=== PATIENT | female | born 1950 | race Caucasian/White ===

== ENCOUNTER 2016-12-31 08:40 | Outpatient (CLI) | payer MEDICARE, OTHER ==
[2016-12-31 18:20] LABS: BASOPHILS # (AUTO) 0.1 10^3/uL (0.0-0.1); BASOPHILS % (AUTO) 1.1 %; EOSINOPHILS # (AUTO) 0.2 10^3/uL (0.0-0.7); EOSINOPHILS % (AUTO) 4.2 %; HCT - HEMATOCRIT 42.3 % (37.0-47.0); HGB - HEMOGLOBIN 13.9 g/dL (12.0-16.0); LYMPHOCYTES # (AUTO) 1.8 10^3/uL (1.5-3.5); LYMPHOCYTES % (AUTO) 31.2 %; MEAN CORPUSCULAR HEMOGLOBIN 29.6 pg (27.0-31.0); MEAN CORPUSCULAR HGB CONC 32.8 g/dL (32.0-36.0); MEAN CORPUSCULAR VOLUME 90.2 fL (81.0-99.0); MEAN PLATELET VOLUME 8.6 fL (7.9-10.8); MONOCYTES # (AUTO) 0.3 10^3/uL (0.0-1.0); MONOCYTES % (AUTO) 5.3 %; NEUTROPHILS # (AUTO) 3.4 10^3/uL (1.5-6.6); NEUTROPHILS % (AUTO) 58.2 %; NUCLEATED RED BLOOD CELLS AUTO 0.2 /100WBC; RED BLOOD COUNT 4.69 10^6/uL (4.20-5.40); RED CELL DISTRIBUTION WIDTH 13.5 % (12.0-15.0); UNCORRECTED WHITE BLOOD COUNT 5.9 x10^3/uL; WHITE BLOOD COUNT 5.9 x10^3/uL (4.8-10.8)
[2016-12-31 18:32] LABS: ALBUMIN/GLOBULIN RATIO 1.3 (1.0-2.2); BILIRUBIN,TOTAL 0.4 mg/dL (0.2-1.0); BUN - BLOOD UREA NITROGEN 13 mg/dL (6-20); CARBON DIOXIDE - CO2 27 mmol/L (21-32); CHLORIDE 105 mmol/L (101-111); CREATININE 0.6 mg/dL (0.4-1.0); GFR - MDRD 100 (>89); GLUCOSE 81 mg/dL (70-100); POTASSIUM 3.8 mmol/L (3.5-5.0); SODIUM 139 mmol/L (135-145); TOTAL PROTEIN 6.8 g/dL (6.7-8.2)
== END 2016-12-31 08:41 | disposition home or self-care (01) ==
LOC: LAB.F 08:40
PROVIDERS: ATTEND Physician Assistant Medical
DX: E55.9 Vitamin D deficiency, unspecified (principal); E03.9 Hypothyroidism, unspecified; Z51.81 Encounter for therapeutic drug level monitoring; Z79.899 Other long term (current) drug therapy
CPT/HCPCS: 36415; 80053; 82306; 84443; 85025

== ENCOUNTER 2017-08-16 11:17 | Outpatient (CLI) | payer MEDICARE, OTHER ==
--- NOTE | 2017-08-17 15:13 | Mammography Report ---
DIGITAL SCREENING MAMMOGRAM: 08/16/2017 CLINICAL INDICATION: A 67-year-old with history of bilateral implants for screening. COMPARISON: 06/2015, 05/2014, 05/2013, 05/2012, 05/2011, 05/2010, 05/2009. TECHNIQUE: Routine CC and MLO projections, with implant displaced views, were obtained of the breasts. FINDINGS: The breasts again demonstrate heterogeneously dense fibroglandular parenchyma bilaterally. Bilateral subglandular implants are stable, as it is extravasated silicone. No suspicious masses, clustered microcalcifications, or regions of architectural distortion are identified. Punctate, typically benign calcifications are present. IMPRESSION: BENIGN FINDINGS. RECOMMENDATION: Routine annual screening unless otherwise clinically indicated. BIRADS CATEGORY 2 - BENIGN FINDINGS. STANDARD QUALIFYING STATEMENTS: 1. This examination was reviewed with the aid of Computer-Aided Detection (CAD) . 2. A negative or benign imaging report should not delay biopsy if clinically suspicious findings are present. Consider surgical consultation if warranted. More than 5 % of cancers are not identified by imaging. 3. Dense breasts may obscure an underlying neoplasm. TD: 08/17/2017 15:04 SHYAM
== END 2017-08-16 11:18 | disposition home or self-care (01) ==
LOC: DI 11:17
PROVIDERS: ATTEND Physician Assistant Medical
DX: Z12.31 Encounter for screening mammogram for malignant neoplasm of breast (principal); Z98.82 Breast implant status
CPT/HCPCS: 77067

== ENCOUNTER 2017-08-16 11:19 | Outpatient (CLI) | payer MEDICARE, OTHER ==
--- NOTE | 2017-08-16 14:37 | XRAY Report ---
THREE VIEW LEFT ANKLE: 08/16/2017 CLINICAL INDICATION: Pain. FINDINGS: AP, lateral, oblique views of the left ankle demonstrate severe osteoarthritis of the mortise. There is no evidence of acute fracture. No effusion is present. IMPRESSION: SEVERE OSTEOARTHRITIS OF THE LEFT ANKLE. TD: 08/16/2017 14:22
== END 2017-08-16 11:20 | disposition home or self-care (01) ==
LOC: DI 11:19
PROVIDERS: ATTEND Internal Medicine
DX: M25.572 Pain in left ankle and joints of left foot (principal); M19.072 Primary osteoarthritis, left ankle and foot

== ENCOUNTER 2018-03-17 08:14 | Outpatient (CLI) | payer MEDICARE, OTHER ==
[2018-03-17 10:21] LABS: BASOPHILS % (AUTO) 0.4 %; EOSINOPHILS # (AUTO) 0.3 10^3/uL (0.0-0.7); EOSINOPHILS % (AUTO) 3.9 %; HGB - HEMOGLOBIN 13.8 g/dL (12.0-16.0); LYMPHOCYTES # (AUTO) 1.9 10^3/uL (1.5-3.5); LYMPHOCYTES % (AUTO) 28.4 %; MEAN CORPUSCULAR HEMOGLOBIN 29.9 pg (27.0-31.0); MEAN CORPUSCULAR HGB CONC 33.6 g/dL (32.0-36.0); MEAN CORPUSCULAR VOLUME 88.8 fL (81.0-99.0); MEAN PLATELET VOLUME 7.7 fL (7.9-10.8); MONOCYTES # (AUTO) 0.4 10^3/uL (0.0-1.0); MONOCYTES % (AUTO) 5.7 %; NEUTROPHILS # (AUTO) 4.1 10^3/uL (1.5-6.6); NEUTROPHILS % (AUTO) 61.6 %; PLT - PLATELET COUNT 337 10^3/uL (130-450); RED BLOOD COUNT 4.63 10^6/uL (4.20-5.40); RED CELL DISTRIBUTION WIDTH 13.3 % (12.0-15.0); WHITE BLOOD COUNT 6.7 x10^3/uL (4.8-10.8)
[2018-03-17 10:26] LABS: ALBUMIN 3.8 g/dL (3.2-5.5); ALBUMIN/GLOBULIN RATIO 1.3 (1.0-2.2); BILIRUBIN,TOTAL 0.7 mg/dL (0.2-1.0); CREATININE 0.6 mg/dL (0.4-1.0); TOTAL PROTEIN 6.7 g/dL (6.7-8.2)
== END 2018-03-17 08:15 | disposition home or self-care (01) ==
LOC: LAB.F 08:14
PROVIDERS: ATTEND Physician Assistant Medical
DX: Z51.81 Encounter for therapeutic drug level monitoring (principal); E03.9 Hypothyroidism, unspecified; D64.9 Anemia, unspecified
CPT/HCPCS: 36415; 80053; 84443; 85025

== ENCOUNTER 2018-11-21 07:36 | Outpatient (CLI) | payer MEDICARE, OTHER ==
[2018-11-21 10:17] LABS: ALBUMIN 3.8 g/dL (3.2-5.5); ALBUMIN/GLOBULIN RATIO 1.3 (1.0-2.2); BILIRUBIN,TOTAL 0.6 mg/dL (0.2-1.0); CALCIUM 8.9 mg/dL (8.5-10.3); CREATININE 0.7 mg/dL (0.4-1.0); TOTAL PROTEIN 6.7 g/dL (6.7-8.2)
[2018-11-21 10:23] LABS: BASOPHILS % (AUTO) 0.7 %; EOSINOPHILS # (AUTO) 0.3 10^3/uL (0.0-0.7); EOSINOPHILS % (AUTO) 4.1 %; HGB - HEMOGLOBIN 12.9 g/dL (12.0-16.0); LYMPHOCYTES % (AUTO) 32.2 %; MEAN CORPUSCULAR HEMOGLOBIN 29.3 pg (27.0-31.0); MEAN CORPUSCULAR HGB CONC 31.9 g/dL (32.0-36.0); MEAN PLATELET VOLUME 10.1 fL (7.9-10.8); MONOCYTES # (AUTO) 0.4 10^3/uL (0.0-1.0); MONOCYTES % (AUTO) 6.4 %; NEUTROPHILS # (AUTO) 3.4 10^3/uL (1.5-6.6); NEUTROPHILS % (AUTO) 56.4 %; PLT - PLATELET COUNT 312 10^3/uL (130-450); RED CELL DISTRIBUTION WIDTH 12.9 % (12.0-15.0); WHITE BLOOD COUNT 6.1 x10^3/uL (4.8-10.8)
== END 2018-11-21 07:37 | disposition home or self-care (01) ==
LOC: LAB.S 07:36
PROVIDERS: ATTEND Physician Assistant Medical
DX: E03.9 Hypothyroidism, unspecified (principal); Z51.81 Encounter for therapeutic drug level monitoring; Z79.899 Other long term (current) drug therapy
CPT/HCPCS: 36415; 80053; 84443; 85025

== ENCOUNTER 2019-12-07 10:03 | Outpatient (CLI) | payer MEDICARE, OTHER ==
--- NOTE | 2019-12-10 11:48 | Mammography Report ---
BILATERAL DIGITAL SCREENING MAMMOGRAM 3D/2D WITH AUGMENTATION: 12/07/2019 CLINICAL: Routine screening. Comparison is made to exams dated: 08/16/2017 mammogram, 07/11/2015 mammogram, 06/13/2014 mammogram, mammogram, 06/11/2011 mammogram, and 06/02/2012 mammogram - [facility]. The tissue of both breasts is heterogeneously dense. This may lower the sensitivity of mammography. Bilateral silicone implants are present. There is an irregular high density asymmetry in the left breast anterior depth lateral region seen on the craniocaudal view only. This is more prominent. No other significant masses, calcifications, or other findings are seen in either breast. IMPRESSION: INCOMPLETE: NEEDS ADDITIONAL IMAGING EVALUATION The irregular high density asymmetry in the left breast is indeterminate. Additional views with poss ible ultrasound are recommended. This exam was interpreted at Station ID: [id number]. NOTE: For mammograms, a report in lay terms will be sent to the patient. Approximately 15% of breast malignancies will not be visualized mammographically. In the management of a palpable breast mass, a negative mammogram must not discourage biopsy of a clinically suspicious lesion. Electronically Signed By: Delmi arias/:12/07/2019 12:31:01 ACR BI-RADS Category 0: Incomplete 3340F PARENCHYMAL PATTERN: (D) - The breast(s) demonstrate(s) heterogeneously dense fibroglandular omid pan. BI-RADS CATEGORY: (0) - 0 Mammo and US [id number] Immediate follow-up LATERALITY: (B)
== END 2019-12-07 10:04 | disposition home or self-care (01) ==
LOC: DI 10:03
DX: Z12.31 Encounter for screening mammogram for malignant neoplasm of breast (principal); R92.8 Other abnormal and inconclusive findings on diagnostic imaging of breast; Z98.82 Breast implant status
CPT/HCPCS: 77063; 77067

== ENCOUNTER 2020-01-08 07:16 | Outpatient (CLI) | payer MEDICARE, OTHER ==
[2020-01-08 15:27] LABS: BASOPHILS % (AUTO) 0.5 %; EOSINOPHILS # (AUTO) 0.2 10^3/uL (0.0-0.7); EOSINOPHILS % (AUTO) 3.1 %; HGB - HEMOGLOBIN 12.2 g/dL (12.0-16.0); LYMPHOCYTES % (AUTO) 33.6 %; MEAN CORPUSCULAR HEMOGLOBIN 27.1 pg (27.0-31.0); MEAN CORPUSCULAR HGB CONC 30.6 g/dL (32.0-36.0); MEAN CORPUSCULAR VOLUME 88.5 fL (81.0-99.0); MEAN PLATELET VOLUME 9.5 fL (7.9-10.8); MONOCYTES # (AUTO) 0.4 10^3/uL (0.0-1.0); MONOCYTES % (AUTO) 7.1 %; NEUTROPHILS # (AUTO) 3.2 10^3/uL (1.5-6.6); NEUTROPHILS % (AUTO) 55.4 %; PLT - PLATELET COUNT 352 10^3/uL (130-450); RED BLOOD COUNT 4.51 10^6/uL (4.20-5.40); RED CELL DISTRIBUTION WIDTH 13.9 % (12.0-15.0); WHITE BLOOD COUNT 5.8 x10^3/uL (4.8-10.8)
[2020-01-08 15:48] LABS: ALBUMIN 4.1 g/dL (3.2-5.5); ALBUMIN/GLOBULIN RATIO 1.4 (1.0-2.2); ALKALINE PHOSPHATASE 113 IU/L (42-121); ALT ALANINE AMINOTRANSFERASE 19 IU/L (10-60); AST ASPARTATE AMINOTRANSFERASE 26 IU/L (10-42); BILIRUBIN,TOTAL 0.5 mg/dL (0.2-1.0); BUN - BLOOD UREA NITROGEN 12 mg/dL (6-20); CALCIUM 9.1 mg/dL (8.5-10.3); CARBON DIOXIDE - CO2 26 mmol/L (21-32); CHLORIDE 108 mmol/L (101-111); CHOL/HDL RATIO 2.7 (<4.4); CHOLESTEROL 215 mg/dL; CREATININE 0.6 mg/dL (0.4-1.0); GLUCOSE 90 mg/dL (70-100); HDL CHOLESTEROL 80 mg/dL; LDL CHOLESTEROL,CALCULATED 123 mg/dL; LDL/HDL RATIO 1.5 (<4.4); SODIUM 141 mmol/L (135-145); TOTAL PROTEIN 7.1 g/dL (6.7-8.2); VLDL CHOLESTEROL 12 mg/dL
[2020-01-08 16:38] LABS: FREE T4 (FREE THYROXINE) 1.11 ng/dL (0.58-1.64)
[2020-01-09 12:45] LABS: HEPATITIS C ANTIBODY NON-REACTIVE (NON-REACTIVE)
== END 2020-01-08 07:17 | disposition home or self-care (01) ==
LOC: LAB.S 07:16
PROVIDERS: ATTEND Registered Nurse
DX: E03.9 Hypothyroidism, unspecified (principal); M79.7 Fibromyalgia; D64.9 Anemia, unspecified; E55.9 Vitamin D deficiency, unspecified; Z11.59 Encounter for screening for other viral diseases
CPT/HCPCS: 36415; 80053; 80061; 83721; 84439; 84443; 85025; 86803

== ENCOUNTER 2020-01-16 10:28 | Outpatient (CLI) | payer MEDICARE, OTHER ==
--- NOTE | 2020-01-17 15:26 | Mammography Report ---
UNILATERAL LEFT DIGITAL DIAGNOSTIC MAMMOGRAM 3D/2D: 01/16/2020 CLINICAL: Patient returns today to evaluate a focal asymmetry in the left breast. Comparison is made to exams dated: 12/07/2019 mammogram, 08/16/2017 mammogram, 07/11/2015 mammogram, mammogram, 06/08/2013 mammogram, and 06/02/2012 mammogram - [facility]. The tissue of left breast is heterogeneously dense. This may lower the sensitivity of mammography. Left breast silicone implant is intact. The previously described 1 cm irregular high density asymmetry in the left breast at 3 o'clock middle depth is not seen in additional views and is less prominent as a discrete structure. No other significant masses or calcifications are seen in the breast. IMPRESSION: INCOMPLETE: NEEDS ADDITIONAL IMAGING EVALUATION Partial resolution of screening mammography abnormality with additional views. Ultrasound evaluation to confirm resolution is recommended and was performed immediately following this exam. This exam was interpreted at Station ID: [id number]. NOTE: For mammograms, a report in lay terms will be sent to the patient. Approximately 15% of breast malignancies will not be visualized mammographically. In the management of a palpable breast mass, a negative mammogram must not discourage biopsy of a clinically suspicious lesion. Electronically Signed By: Delmi arias/:01/16/2020 11:45:34 ACR BI-RADS Category 0: Incomplete 3340F PARENCHYMAL PATTERN: (D) - The breast(s) demonstrate(s) heterogeneously dense fibroglandular omid pan. BI-RADS CATEGORY: (0) - 0 Ultrasound [id number] Immediate follow-up LATERALITY: (B)
--- NOTE | 2020-01-17 15:26 | Ultrasound Report ---
LIMITED ULTRASOUND OF LEFT BREAST: 01/16/2020 CLINICAL: Patient returns for additional imaging over a suspected mass in the left breast. Comparison is made to exams dated: 01/16/2020 mammogram, 12/07/2019 mammogram, 08/16/2017 mammogram, mammogram, 06/13/2014 mammogram, and 06/08/2013 mammogram - [facility]. Color flow and real-time ultrasound of the left breast 4 o'clock region were performed. Lopez scale images of the real-time examination were reviewed. There is a 0.8 cm x 0.6 cm x 0.2 cm oval cyst with an eccentrically thickened wall in the left breast at 4 o'clock middle depth 6 cm from the nipple. This oval cyst is otherwise anechoic. This correla summer with screening mammography findings. Color flow imaging demonstrates that there is no vascularit y present. IMPRESSION: PROBABLY BENIGN The 0.8 cm oval cyst in the left breast is probably a complicated cyst and is probably benign. A follow-up left mammogram and an ultrasound in 6 months is recommended to demonstrate stability. Findings and recommendations were conveyed to the patient at time of exam. This exam was interpreted at Station ID: [id number]. Electronically Signed By: Delmi arias/:01/16/2020 12:34:43 Ultrasound BI-RADS: 3 Probably benign BI-RADS CATEGORY: (3) - 3 Mammo and US [id number] 6 month follow-up LATERALITY: (L)
== END 2020-01-16 10:29 | disposition home or self-care (01) ==
LOC: DI 10:28
PROVIDERS: ATTEND Registered Nurse
DX: R92.8 Other abnormal and inconclusive findings on diagnostic imaging of breast (principal)
CPT/HCPCS: 76642

== ENCOUNTER 2020-06-23 08:51 | Outpatient (CLI) | payer MEDICARE, OTHER ==
--- NOTE | 2020-06-24 08:30 | Mammography Report ---
UNILATERAL LEFT DIGITAL DIAGNOSTIC MAMMOGRAM 3D/2D: 06/23/2020 CLINICAL: Patient returns for a 6 month follow up of the left breast. Comparison is made to exams dated: 01/16/2020 mammogram, 12/07/2019 mammogram, 08/16/2017 mammogram, mammogram, and 06/13/2014 mammogram - [facility]. The tissue of left breas t is heterogeneously dense. This may lower the sensitivity of mammography. Left silicone implant is intact. Redemonstration of previously described 1 cm irregular equal density asymmetry in the left breast at 3 o'clock middle depth. This is less prominent and decreased in size. No other significant masses or calcifications are seen in the breast. IMPRESSION: INCOMPLETE: NEEDS ADDITIONAL IMAGING EVALUATION The 1 cm irregular equal density asymmetry in the left breast is indeterminate. An ultrasound is recommended for further evaluation and is scheduled to immediately follow this exami nation. This exam was interpreted at Station ID: [id number]. NOTE: For mammograms, a report in lay terms will be sent to the patient. Approximately 15% of breast malignancies will not be visualized mammographically. In the management of a palpable breast mass, a negative mammogram must not discourage biopsy of a clinically suspicious lesion. Electronically Signed By: Abdon Kaur M.D. aty/:06/23/2020 12:11:45 ACR BI-RADS Category 0: Incomplete 3340F PARENCHYMAL PATTERN: (D) - The breast(s) demonstrate(s) heterogeneously dense fibroglandular omid pan. BI-RADS CATEGORY: (0) - 0 Ultrasound [id number] Immediate follow-up LATERALITY: (L)
--- NOTE | 2020-06-24 08:31 | Ultrasound Report ---
LIMITED ULTRASOUND OF LEFT BREAST: 06/23/2020 CLINICAL: Patient returns for short term follow-up of a probably benign mass in the left breast. Comparison is made to exams dated: 06/23/2020 mammogram, 01/16/2020 ultrasound, 01/16/2020 mammogram, 12/07/2019 mammogram, 08/16/2017 mammogram, and 07/11/2015 mammogram - [facility]. Color flow and real-time ultrasound of the left breast 4 o'clock region were performed. Lopez scale images of the real-time examination were reviewed. There is a 0.7 cm x 0.3 cm x 0.5 cm oval cyst with a thickened wall in the left breast at 4 o'clock a nterior depth 6 cm from the nipple. This oval cyst is hypoechoic with internal echoes. This abnorma lity is not significantly changed and correlates with mammography findings. Color flow imaging demon strates that there is no vascularity present. IMPRESSION: PROBABLY BENIGN The 0.7 cm x 0.3 cm x 0.5 cm oval cyst in the left breast is consistent with a complicated cyst and i s probably benign. A follow-up bilateral mammogram and a left ultrasound in 6 months is recommended to demonstrate kamla nued stability. Findings and recommendations were conveyed to the patient during today's evaluation. This exam was interpreted at Station ID: [id number]. Electronically Signed By: Abdon Kaur M.D. aty/:06/23/2020 12:34:24 Ultrasound BI-RADS: 3 Probably benign BI-RADS CATEGORY: (3) - 3 Mammo and US [id number] 6 month follow-up LATERALITY: (B)
== END 2020-06-23 08:52 | disposition home or self-care (01) ==
LOC: DI 08:51
PROVIDERS: ATTEND Registered Nurse
DX: R92.8 Other abnormal and inconclusive findings on diagnostic imaging of breast (principal); N60.02 Solitary cyst of left breast

== ENCOUNTER 2020-08-26 08:24 | Outpatient (CLI) | payer MEDICARE, OTHER ==
--- NOTE | 2020-08-26 11:36 | DEXA Report ---
PROCEDURE: Dexa Spine and/or Hip INDICATIONS: POST MENOPAUSAL TECHNIQUE: Dual energy x-ray absorptiometry (DXA) was performed on a [employer]. Regions measur ed are the AP Spine, femoral neck, and if needed forearm. COMPARISON: None. FINDINGS: Lumbar Spine: Bone Mineral Density 1.164 g/cm/cm,T score -0.1, normal Left Hip: Bone Mineral Density 0.691 g/cm/cm,T score -2.5, osteoporosis Left Femoral Neck: Bone Mineral Density 0.701 g/cm/cm, T score -2.4, osteopenia (T score greater or equal to -1.0: NORMAL) (T score from -1.1 to -2.4: OSTEOPENIA) (T score less than or equal to -2.5 to: OSTEOPOROSIS) Impression: Osteoporosis puts patient at a high-risk of fracture. Patients with diagnosis of osteoporosis or osteopenia should have regular bone mineral density assess ment. For those eligible for Medicare, routine testing is allowed once every 2 years. Testing frequ ency can be increased for patients who have rapidly progressing disease or for those who are receivin g medical therapy to restore bone mass. Reviewed by: Delmi Frankel MD on 08/26/2020 11:35 AM PDT Approved by: Delmi Frankel MD on 08/26/2020 11:35 AM PDT Station ID: [id number]
== END 2020-08-26 08:25 | disposition home or self-care (01) ==
LOC: DI 08:24
PROVIDERS: ATTEND Registered Nurse
DX: Z13.820 Encounter for screening for osteoporosis (principal); M81.0 Age-related osteoporosis without current pathological fracture; Z78.0 Asymptomatic menopausal state

== ENCOUNTER 2021-02-04 10:48 | Outpatient (CLI) | payer MEDICARE, OTHER ==
--- NOTE | 2021-02-05 09:21 | Ultrasound Report ---
LIMITED ULTRASOUND OF LEFT BREAST: 02/04/2021 CLINICAL: Patient returns today to evaluate a focal asymmetry in the left breast. Comparison is made to exams dated: 02/04/2021 mammogram, 06/23/2020 ultrasound, 06/23/2020 mammogram, ultrasound, 01/16/2020 mammogram, and 12/07/2019 mammogram - [facility]. Color flow ultrasound of the left breast 4 o'clock region was performed. Lopez scale images of the r eal-time examination were reviewed. There is a 0.5 cm x 0.3 cm x 0.5 cm oval cyst with a thickened wall in the left breast at 4 o'clock a nterior depth 6 cm from the nipple. This oval cyst is hypoechoic with internal echoes. This abnorma lity is decreased in size and correlates with mammography findings. Color flow imaging demonstrates that there is no vascularity present. IMPRESSION: PROBABLY BENIGN The 0.5 cm x 0.3 cm x 0.5 cm oval cyst in the left breast is consistent with a complicated cyst and i s probably benign. A follow-up mammogram and an ultrasound in 12 months is recommended. This exam was interpreted at Station ID: [id number]. Electronically Signed By: Nolan bhatia/carlitos:02/04/2021 12:28:24 Ultrasound BI-RADS: 3 Probably benign BI-RADS CATEGORY: (3) - 3 Mammo and US [id number] 12 month follow-up LATERALITY: (B)
--- NOTE | 2021-02-05 09:21 | Mammography Report ---
BILATERAL DIGITAL DIAGNOSTIC MAMMOGRAM 3D/2D: 02/04/2021 CLINICAL: Patient returns for a 6 month follow up of the left breast, due for bilateral exam. Comparison is made to exams dated: 06/23/2020 ultrasound, 06/23/2020 mammogram, 01/16/2020 ultrasound, 1 mammogram, 12/07/2019 mammogram, and 08/16/2017 mammogram - [facility]. Th e tissue of both breasts is heterogeneously dense. This may lower the sensitivity of mammography. Left silicone implant is intact. Stable right silicone implant with extravasated silicone. There is a 1 cm irregular equal density focal asymmetry in the left breast at 3 o'clock middle depth. This is not significantly changed. No other significant masses, calcifications, or other findings are seen in either breast. IMPRESSION: INCOMPLETE: NEEDS ADDITIONAL IMAGING EVALUATION The 1 cm irregular equal density focal asymmetry in the left breast is indeterminate. Targeted ultra sound is recommended for further evaluation, which will be performed immediately following this exam. This exam was interpreted at Station ID: [id number]. NOTE: For mammograms, a report in lay terms will be sent to the patient. Approximately 15% of breast malignancies will not be visualized mammographically. In the management of a palpable breast mass, a negative mammogram must not discourage biopsy of a clinically suspicious lesion. Electronically Signed By: Nolan Rhodes M.D. ar/:02/04/2021 12:27:20 ACR BI-RADS Category 0: Incomplete 3340F PARENCHYMAL PATTERN: (D) - The breast(s) demonstrate(s) heterogeneously dense fibroglandular parelías pan. BI-RADS CATEGORY: (0) - 0 Ultrasound [id number] Immediate follow-up LATERALITY: (L)
== END 2021-02-04 10:49 | disposition home or self-care (01) ==
LOC: DI 10:48
PROVIDERS: ATTEND Registered Nurse
DX: N60.02 Solitary cyst of left breast (principal)

== ENCOUNTER 2022-02-10 09:35 | Outpatient (CLI) | payer MEDICARE, OTHER ==
--- NOTE | 2022-02-15 10:56 | Ultrasound Report ---
LIMITED ULTRASOUND OF LEFT BREAST: 02/10/2022 CLINICAL: Short term follow up for the left breast. Comparison is made to exams dated: 02/10/2022 mammogram, 02/04/2021 ultrasound, 02/04/2021 mammogram , 06/23/2020 ultrasound, 06/23/2020 mammogram, and 01/16/2020 ultrasound - [facility]. Color flow and real-time ultrasound of the left breast 4 o'clock and 6 o'clock regions were performe d on the areas of interest. Lopez scale images of the real-time examination were reviewed. Left silicone implant is intact. There is a stable 1 cm complicated cyst in the left breast at 2 o'clock middle depth. IMPRESSION: BENIGN There is no sonographic evidence of malignancy. The stable 1 cm complicated cyst in the left breast is benign. Return to annual mammogram screening schedule is recommended. This exam was interpreted at Station ID: [id number]. Electronically Signed By: Janeth Frederick M.D. lk/:02/10/2022 10:59:38 Ultrasound BI-RADS: 2 Benign BI-RADS CATEGORY: (2) - 2 Mammogram [id number] return to screening LATERALITY: (B)
--- NOTE | 2022-02-15 10:56 | Mammography Report ---
BILATERAL DIGITAL DIAGNOSTIC MAMMOGRAM 3D/2D WITH AUGMENTATION: 02/10/2022 CLINICAL: Short term follow up for the left breast. Due for Bilateral. Comparison is made to exams dated: 02/04/2021 mammogram, 06/23/2020 mammogram, 01/16/2020 mammogram, mammogram, and 08/16/2017 mammogram - [facility]. Both breasts are heterogeneously dense, which may obscure small masses (category c / 51-75% glandular tissue). Left silicone implant is intact. Right silicone implant is stable and has an outer wall rupture. The focal asymmetry in the left breast at 3 o'clock middle depth is less prominent than on prior exam s. No other significant masses, calcifications, or other findings are seen in either breast. IMPRESSION: INCOMPLETE: NEEDS ADDITIONAL IMAGING EVALUATION The 1 cm irregular equal density focal asymmetry in the left breast is indeterminate. Targeted ultr asound is recommended for further evaluation, which will be performed immediately following this exam . Based on the Tyrer Cuzick model (a risk assessment model) the patients lifetime risk is 7.3% and her 10 year risk is 6.0%. According to the ACR, ACS, and NCCN guidelines, an annual breast MRI exam gordon g with mammogram is recommended if the patients lifetime risk is 20% or greater. This exam was interpreted at Station ID: [id number]. NOTE: For mammograms, a report in lay terms will be sent to the patient. Approximately 15% of breast malignancies will not be visualized mammographically. In the management of a palpable breast mass, a negative mammogram must not discourage biopsy of a clinically suspicious lesion. Electronically Signed By: Janeth rodriguez/:02/10/2022 10:24:27 ACR BI-RADS Category 0: Incomplete 3340F PARENCHYMAL PATTERN: (D) - The breast(s) demonstrate(s) heterogeneously dense fibroglandular parelías pan. BI-RADS CATEGORY: (0) - 0 Ultrasound [id number] Immediate follow-up LATERALITY: (B)
== END 2022-02-10 09:36 | disposition home or self-care (01) ==
LOC: DI 09:35
PROVIDERS: ATTEND Registered Nurse
DX: N60.02 Solitary cyst of left breast (principal); Z98.82 Breast implant status

== ENCOUNTER 2022-10-15 07:17 | Outpatient (CLI) | payer MEDICARE, OTHER ==
[2022-10-15 14:52] LABS: HCT - HEMATOCRIT 42.1 % (37.0-47.0); HGB - HEMOGLOBIN 13.3 g/dL (12.0-16.0); MEAN CORPUSCULAR HEMOGLOBIN 29.8 pg (27.0-31.0); MEAN CORPUSCULAR HGB CONC 31.6 g/dL (32.0-36.0); MEAN CORPUSCULAR VOLUME 94.2 fL (81.0-99.0); MEAN PLATELET VOLUME 10.7 fL (7.9-10.8); RED BLOOD COUNT 4.47 10^6/uL (4.20-5.40); RED CELL DISTRIBUTION WIDTH 13.1 % (12.0-15.0); WHITE BLOOD COUNT 5.6 x10^3/uL (4.8-10.8)
[2022-10-15 15:14] LABS: ESTIMATED AVERAGE GLUCOSE 111 mg/dL (70-100); HEMOGLOBIN A1c% 5.5 % (4.27-6.07)
[2022-10-15 15:37] LABS: ALBUMIN/GLOBULIN RATIO 1.5 (1.0-2.2); ALKALINE PHOSPHATASE 127 IU/L (42-121); ALT ALANINE AMINOTRANSFERASE 13 IU/L (10-60); AST ASPARTATE AMINOTRANSFERASE 17 IU/L (10-42); BILIRUBIN,TOTAL 0.4 mg/dL (0.2-1.0); BUN - BLOOD UREA NITROGEN 13 mg/dL (6-20); CALCIUM 9.2 mg/dL (8.5-10.3); CARBON DIOXIDE - CO2 30 mmol/L (21-32); CHLORIDE 105 mmol/L (101-111); CHOL/HDL RATIO 3.3 (<4.4); CHOLESTEROL 204 mg/dL; CREATININE 0.6 mg/dL (0.6-1.3); GFR - MDRD 98 (>89); GLUCOSE 92 mg/dL (74-104); HDL CHOLESTEROL 61 mg/dL; LDL CHOLESTEROL,CALCULATED 127 mg/dL; LDL/HDL RATIO 2.1 (<4.4); SODIUM 140 mmol/L (135-145); TOTAL PROTEIN 6.7 g/dL (6.4-8.9); TRIGLYCERIDES 81 mg/dL (48-352); VLDL CHOLESTEROL 16 mg/dL
== END 2022-10-15 07:18 | disposition home or self-care (01) ==
LOC: LAB.S 07:17
PROVIDERS: ATTEND Nurse Practitioner
DX: E03.9 Hypothyroidism, unspecified (principal); Z13.220 Encounter for screening for lipoid disorders; Z13.1 Encounter for screening for diabetes mellitus; D64.9 Anemia, unspecified
CPT/HCPCS: 36415; 80053; 80061; 82728; 83036; 83721; 84443; 85027

== ENCOUNTER 2022-12-23 10:02 | Outpatient (CLI) | payer MEDICARE, OTHER ==
--- NOTE | 2022-12-24 08:30 | XRAY Report ---
PROCEDURE: Thoracic Spine 3 View INDICATIONS: THORACIC SPINE TECHNIQUE: 3 views of the thoracic spine were acquired. COMPARISON: None. FINDINGS: Bones: No fractures or dislocations. There is 27 degrees dextroscoliosis with apex at T8-T9. No diana picious bony lesions. Degenerative disc disease throughout the thoracic spine. Osteopenia. 12 pairs o f ribs are noted, and appear intact where visualized. Soft tissues: No paravertebral stripe thickening. Cholecystectomy clips noted. IMPRESSION: 1. Dextroscoliosis. 2. Moderate degenerative disc disease. 3. Osteopenia. Reviewed by: Debra Rodriges MD on 12/24/2022 8:29 AM PDT Approved by: Debra Rodriges MD on 12/24/2022 8:29 AM PDT Station ID: [id number]
--- NOTE | 2022-12-24 08:35 | XRAY Report ---
PROCEDURE: Cervical Spine 2 View INDICATIONS: DJD BACK TECHNIQUE: 3 view(s) of the cervical spine were acquired. COMPARISON: None. FINDINGS: Bones: No fractures or dislocations to the C7 level. The lateral masses of C1 appear intact on the odontoid view. No suspicious bony lesions. Degenerative disc disease, severe at C3-C4 on C5 and C5, C5-C6 and C6-C7. Bilateral facet arthropathy, most pronounced and severe at C2-C3, C3-C4, C4-C5 and C5-C6 on the left, and C3-C3, C3-C4 and C4-C5 on the right. Osteopenia. Soft tissues: No prevertebral soft tissue swelling. IMPRESSION: 1. Severe degenerative disc and facet disease. 2. Osteopenia. Reviewed by: Debra Rodriges MD on 12/24/2022 8:33 AM PDT Approved by: Debra Rodriges MD on 12/24/2022 8:33 AM PDT Station ID: [id number]
--- NOTE | 2022-12-24 08:37 | XRAY Report ---
PROCEDURE: Lumbar Spine 2 View INDICATIONS: DJD BACK TECHNIQUE: 3 views of the lumbar spine were acquired. COMPARISON: None. FINDINGS: Bones: 5 [id number] vertebrae are present. There is moderate levoscoliosis with apex at L3. Gr jeni 1 anterolisthesis of L4 on L5. No vertebral body compression fractures. No suspicious bony lesi ons. Degenerative disc disease, moderate at L2-L3 and L4-L5, and mild at other levels. Severe facet arthropathy at L5 L5 and L5-S1. 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 Soft tissues: Overlying bowel gas pattern is normal. No suspicious soft tissue calcifications. IMPRESSION: 1. Levoscoliosis. 2. Severe facet arthropathy in the lower lumbar spine. 4. Moderate degenerative disc disease. 4. Baastrop's disease. Reviewed by: Debra Rodriges MD on 12/24/2022 8:36 AM PDT Approved by: Debra Rodriges MD on 12/24/2022 8:36 AM PDT Station ID: [id number]
== END 2022-12-23 10:03 | disposition home or self-care (01) ==
LOC: DI 10:02
PROVIDERS: ATTEND Nurse Practitioner
DX: M51.34 Other intervertebral disc degeneration, thoracic region (principal); M85.88 Other specified disorders of bone density and structure, other site; M41.9 Scoliosis, unspecified; M50.31 Other cervical disc degeneration, high cervical region; M47.812 Spondylosis without myelopathy or radiculopathy, cervical region; M47.816 Spondylosis without myelopathy or radiculopathy, lumbar region; M47.817 Spondylosis without myelopathy or radiculopathy, lumbosacral region; M51.36 Other intervertebral disc degeneration, lumbar region; M51.37 Other intervertebral disc degeneration, lumbosacral region; M48.26 Kissing spine, lumbar region

== ENCOUNTER 2023-01-28 13:47 | Outpatient (CLI) | payer MEDICARE, OTHER ==
--- NOTE | 2023-01-31 12:16 | Mammography Report ---
BILATERAL DIGITAL SCREENING MAMMOGRAM 3D/2D WITH AUGMENTATION: 01/28/2023 CLINICAL: Routine screening. Comparison is made to exams dated: 02/10/2022 mammogram, 02/04/2021 mammogram, 06/23/2020 mammogram, 1 mammogram, 12/07/2019 mammogram, and 08/16/2017 mammogram - [facility]. Both breasts are heterogeneously dense, which may obscure small masses (category c / 51-75% glandular tissue). There are benign vascular calcifications in the left breast. No significant masses, calcifications, or other findings are seen in either breast. There has been no significant interval change. IMPRESSION: BENIGN There is no mammographic evidence of malignancy. A 1 year screening mammogram is recommended. Based on the Tyrer Cuzick model (a risk assessment model) the patients lifetime risk is 6.8% and her 10 year risk is 6.1%. According to the ACR, ACS, and NCCN guidelines, an annual breast MRI exam gordon g with mammogram is recommended if the patients lifetime risk is 20% or greater. This exam was interpreted at Station ID: [id number]. NOTE: For mammograms, a report in lay terms will be sent to the patient. Approximately 15% of breast malignancies will not be visualized mammographically. In the management of a palpable breast mass, a negative mammogram must not discourage biopsy of a clinically suspicious lesion. Electronically Signed By: Delmi arias/carlitos:01/28/2023 16:08:05 letter sent: No_Letter ACR BI-RADS Category 2: Benign Finding(s) 3342F PARENCHYMAL PATTERN: (D) - The breast(s) demonstrate(s) heterogeneously dense fibroglandular parelías pan. BI-RADS CATEGORY: (2) - 2 Mammogram [id number] 1 year screening LATERALITY: (B)
== END 2023-01-28 13:48 | disposition home or self-care (01) ==
LOC: DI 13:47
PROVIDERS: ATTEND Registered Nurse
DX: Z12.31 Encounter for screening mammogram for malignant neoplasm of breast (principal); R92.333 Mammographic heterogeneous density, bilateral breasts